=== PATIENT | male | born 1970 | race Caucasian/White ===

== ENCOUNTER 2017-10-15 18:10 | Inpatient (IN) | payer OTHER ==
[~2017-10-15] VITALS: Ht 185.4 cm; Wt 154.2 kg
[2017-10-15 18:11] VITALS: BP 209/119
[2017-10-15] MEDS ORDERED: LISINOPRIL10 MG PO (18:20)
[2017-10-15] MEDS ORDERED: ASPIR 8181 MG PO (18:20)
[2017-10-15 18:34] LABS: ABSOLUTE EOSINOPHILS 0.1 thou/uL (0.0-0.7); ABSOLUTE LYMPHOCYTES 0.6 thou/uL (0.8-5.3); ABSOLUTE MONOCYTES 0.8 thou/uL (0.0-1.2); ABSOLUTE NEUTROPHILS 4.5 thou/uL (1.6-8.1); BASOPHILS 0.7 %; HEMATOCRIT 43.4 % (42.0-52.0); HEMOGLOBIN 14.8 gm/dL (14.0-18.0); LYMPHOCYTES 10.6 %; MCH 28.5 pg (26.0-34.0); MCHC 34.2 g/dL (28.0-37.0); MCV 83.4 fL (80.0-100.0); MONOCYTES 13.2 %; MPV 8.1 fl. (7.2-11.1); NUCLEATED RBCS 0 /100WBC; PLATELET COUNT* 187 thou/uL (150-400); POLYS 74.5 %; RDW-CV 14.7 % (10.5-14.5); WBC 6.1 thou/uL (4.0-11.0)
[2017-10-15 18:42] LABS: ANION GAP 11 mmol/L (7-16); BUN 11 mg/dL (7-18); CALCIUM 8.7 mg/dL (8.5-10.1); CHLORIDE 103 mmol/L (98-107); CO2 24 mmol/L (21-32); CREATININE 1.2 mg/dL (0.6-1.3); GLUCOSE 101 mg/dL (70-99); POTASSIUM 3.5 mmol/L (3.5-5.1); SODIUM 138 mmol/L (136-145)
[2017-10-15 18:49] LABS: ALKALINE PHOSPHATASE 123 U/L (46-116); LIPASE 89 U/L (73-393); SGOT 25 U/L (15-37); SGPT 37 U/L (30-65); TOTAL BILIRUBIN 0.5 mg/dL (<0.1-1.0); TROPONIN-I LEVEL <0.06 ng/mL (<0.06)
[2017-10-15 18:59] LABS: INFLUENZA A ANTIGEN None Detected (None Detect); INFLUENZA B ANTIGEN None Detected (None Detect)
--- NOTE | 2017-10-15 19:01 | NUR ---
Ramírez WHITFIELD NOTIFIED OF PT LUNGS REMAINING WHEEZY. NEB TX ORDERED. O2 SATS RUNNING 90-91%
--- NOTE | 2017-10-15 19:09 | NUR ---
RT AT BEDSIDE TO GIVE NEB TX
[2017-10-15 21:22] LABS: URINE BILIRUBIN NEGATIVE (Negative); URINE BLOOD TRACE (Negative); URINE CLARITY CLEAR; URINE COLOR YELLOW; URINE GLUCOSE-RANDOM NEGATIVE (Negative); URINE KETONES NEGATIVE (Negative); URINE LEUKOCYTES NEGATIVE (Negative); URINE NITRITE NEGATIVE (Negative); URINE PROTEIN NEGATIVE (Negative); URINE SPECIFIC GRAVITY <= 1.005 (1.005-1.030); URINE UROBILINOGEN 0.2 E.U./dl (0.2-1.0)
[2017-10-15 21:41] VITALS: BP 151/84
[2017-10-15 21:46] LABS: AMP/METHAMP Negative (Negative); BARBITURATES Negative (Negative); BENZODIAZEPINES Negative (Negative); COCAINE Negative (Negative); METHADONE Negative (Negative); OPIATES Negative (Negative); PCP Negative (Negative); THC Negative (Negative)
[2017-10-15 22:00] VITALS: BP 146/93
[2017-10-16 04:35] VITALS: BP 144/79
--- NOTE | 2017-10-16 06:05 | NUR ---
PATIENT ARRIVED ON FLOOR FROM ER ABOUT 2200. PATIENT ADMISSION HISTORY AND ASSESSMENT WAS COMPLETED CHARTED. PATIENT WAS GIVEN PAIN MEDICINE NEEDED FOR GENERALIZED BODY ACHES WITH SOME RELIEF. WILL CONTINUE TO MONITOR.
[2017-10-16 08:00] VITALS: BP 193/119
[2017-10-16 11:47] VITALS: BP 181/94
--- NOTE | 2017-10-16 15:39 | NUR ---
INITIAL ASSESSMENT: Pt evaluated for d/c planning needs. Reviewed chart and spoke with nurse and pt. Pt is alert and oriented. Pt lives in house with spouse and was independent with ADL's prior to admission. 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 He said he informed his employer that he is hospitalized. Pt has CPAP, and uses no other DME. Pt has not had home health in the past. 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 Referral made to [employer]. No other needs identified.
--- NOTE | 2017-10-16 16:30 | EKG ---
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 : 1970 Requested By: Charley Willett Order Number: [id number] MD: Raul Kruse Measurements Intervals [place] Rate: 114 P: 29 GA: 156 QRS: -3 QRSD: 108 T: 70 QT: 355 QTc: 489 Interpretive Statements Sinus tachycardia Minimal ST depression, lateral leads Borderline prolonged QT interval No previous ECG available for comparison Electronically Signed On 10-16-2017 16:29:54 COOK COLD MEAT by Raul Kruse [email or web address] <ELECTRONICALLY SIGNED> By: Raul Kruse MD, [facility] 10/16/17 1629 D: [id number] Raul Kruse MD, FACC /EPI
[2017-10-16 16:56] VITALS: BP 219/110
--- NOTE | 2017-10-16 17:47 | NUR ---
AM ASSESSMENT AND VITAL SIGNS COMPLETED DOCUMENTED. PT HAS RESTED INTERMITTENTLY. IV FLUID CONTINUES ALONG WITH SYMPTOM MANAGEMENT. BLOOD PRESSURE HAS BEEN ELEVATED, PRN HYDRALAZINE GIVEN TWICE WITH SOME IMPROVEMENT. PT'S APPETITE AND ORAL FLUID INTAKE HAVE NOT BEEN AFFECTED. PT STATES HE HASN'T HAD A BOWEL MOVEMENT IN TWO DAYS, PRUNE JUICE GIVEN PER HIS REQUEST. HOURLY ROUNDING AND FALL PRECAUTIONS IN PLACE.
[2017-10-16 20:10] VITALS: BP 194/103
[2017-10-17] VITALS (7 sets, daily range): BP systolic 149–195; BP diastolic 70–105
[2017-10-17 04:19] LABS: HEMATOCRIT 44.1 % (42.0-52.0); HEMOGLOBIN 14.3 gm/dL (14.0-18.0); MCH 27.3 pg (26.0-34.0); MCHC 32.5 g/dL (28.0-37.0); MCV 84.2 fL (80.0-100.0); NUCLEATED RBCS 0 /100WBC; PLATELET COUNT* 220 thou/uL (150-400); RBC 5.23 mil/uL (4.50-6.00); RDW-CV 14.8 % (10.5-14.5); WBC 13.5 thou/uL (4.0-11.0)
[2017-10-17 04:42] LABS: CALCIUM 8.7 mg/dL (8.5-10.1); CREATININE 1.2 mg/dL (0.6-1.3); POTASSIUM 4.2 mmol/L (3.5-5.1)
[2017-10-17 05:47] LABS: ABSOLUTE LYMPHOCYTES 0.8 thou/uL (0.8-5.3); ABSOLUTE MONOCYTES 0.3 thou/uL (0.0-1.2); ABSOLUTE NEUTROPHILS 12.4 thou/uL (1.6-8.1); PLATELET ESTIMATE ADEQUATE
[2017-10-17 05:48] LABS: ANISOCYTOSIS 1+; POIKILOCYTOSIS 1+
--- NOTE | 2017-10-17 07:38 | NUR ---
PT SLEPT ON AND OFF OVERNIGHT, SLEPT FOR A FEW HOURS AFTER RECEIVING PO PAIN AND ANXIETY MED AT HS. BP ELEVATED THIS SHIFT, SCHEDULED PO MEDS AND PRN IV HYDRALAZINE GIVEN INDICATED AND BP IMPROVED THIS MORNING. TO HAVE CARDIAC ECHO TODAY. TELE . CO GENERALIZED ACHES AND PAINS, NO FEVER OVERNIGHT. UP INDEP TO BR TO VOID AND BM OVERNIGHT, SOME LIMA. TOLERATING REGULAR DIET WITHOUT N/V. NICOTINE PATCH REMOVED AT HS. CXR TODAY. AM LABS DRAWN. UP INDEP TO SHOWER THIS MORNING, IV PULLED OUT. RFA IV RESTARTED AND IVF INFUSING PER PUMP. OCC PROD COUGH, JHA SALIVA/SPUTUM NOT SUITABLE FOR SPECIMEN COLLECTION. ABLE TO USE CALL LITE AND MAKE NEEDS KNOWN.
--- NOTE | 2017-10-17 16:22 | NUR ---
PATIENT GIVEN PRN VICODIN X 2 THIS SHIFT FOR BACK PAIN. PATIENT REQUESTED HEATING PAD FOR BACK, ORDER PLACED. IV SL THIS SHIFT, SCHED ABX GIVEN. ECHO DONE THIS AM, AWAITING RESULTS. CXR THIS AM, DR. ALMEIDA AWARE OF RESULTS. CARDAIC MONITOR REMAINS IN PLACE, SR/ST THIS SHIFT. PATIENT UP AD MARISOL AROUND ROOM AND IN HALLWAY. HYDRALAZINE GIVEN X 1 THIS SHIFT FOR ELEVATED BP. PATIENT HOPING TO GO HOME SOON.
--- NOTE | 2017-10-17 17:04 | 2DMMODE ---
[place] [address] 2 D/M-MODE ECHOCARDIOGRAM Name: ROHIT FONTENOT Room: [address] ADM IN [facility]#: [id number] Admission: 10/15/17 Attend Phys: Warren Carrera Discharge: Date of : 66 Date of Service: 10/17/17 1704 Report #: [id number] THIS REPORT FOR: //name// APPROVED REPORT Study performed: 10/17/2017 11:30:54 EXAM: Comprehensive 2D, Doppler, and color-flow Echocardiogram Patient Location: In-Patient Room #: [facility] BSA: 2.67 HR: 89 bpm BP: 152/70 mmHg Other Information Study Quality: Good Indications Congestive Heart Failure 2D Dimensions LVEF(%): 70.82 (>50%) IVSd: 17.70 (7-11mm) LVOT Diam: 22.08 (18-24mm) LVDd: 50.61 mm PWd: 15.04 (7-11mm) Ascending Ao: 32.43 (22-36mm) LVDs: 30.17 (25-40mm) Aortic Root: 31.46 mm Chiu's LVEF: 70.82 % Volumes Left Atrial Volume (Systole) LA ESV Index: 31.90 mL/m2 Aortic Valve AoV Peak Chavez.: 1.63 m/s AO Peak Gr.: 10.57 mmHg LVOT Max P.49 mmHg AO Mean Gr.: 6.07 mmHg LVOT Mean P.32 mmHg LVOT Max V: 1.27 m/s AO V2 VTI: 28.77 cm LVOT Mean V: 0.85 m/s ALVARO (VTI): 3.29 cm2 LVOT V1 VTI: 24.68 cm Mitral Valve E/A Ratio: 0.84 MV Decel. Time: 227.91 [place] [address] 2 D/M-MODE ECHOCARDIOGRAM Name: ROHIT FONTENOT Room: [address] IN .R.#: [id number] Admission: 10/15/17 Attend Phys: Warren Carrera Discharge: Date of : 66 Date of Service: 10/17/17 1704 Report #: [id number] E Max Chavez.: 0.77 m/s MV PHT: 66.09 ms MVA (PHT): 3.33 cm2 TDI E/Lateral E': 7.70 E/Medial E': 9.63 Medial E' Chavez.: 0.08 m/s Lateral E' Chavez.: 0.10 m/s Pulmonary Valve PV Peak Chavez.: 1.00 m/s PV Peak Gr.: 3.97 mmHg Left Ventricle The left ventricle is normal size. There is normal LV segmental wall motion. Moderate concentric left ventricular hypertrophy. Left ventricular systolic function is normal. The left ventricular ejection fraction is within the normal range. LVEF is 55%. Grade I - abnormal relaxation pattern. Right Ventricle The right ventricle is normal size. The right ventricular systolic function is normal. Atria The left atrium size is normal. The right atrium size is normal. Aortic Valve The aortic valve is normal in structure. No aortic regurgitation is present. There is no aortic valvular stenosis. Mitral Valve The mitral valve is normal in structure. Mild mitral regurgitation. No evidence of mitral valve stenosis. Tricuspid Valve The tricuspid valve is normal in structure. There is no tricuspid valve regurgitation noted. Pulmonic Valve The pulmonary valve is normal in structure. There is no pulmonic valvular regurgitation. Great Vessels The aortic root is normal in size. IVC is normal in size and collapses with >50% [place] [address] 2 D/M-MODE ECHOCARDIOGRAM Name: ROHIT FONTENOT Room: [address] IN [facility]#: [id number] Admission: 10/15/17 Attend Phys: Warren Carrera Discharge: Date of : 66 Date of Service: 10/17/17 1704 Report #: [id number] Pericardium There is no pericardial effusion. <Conclusion> The left ventricle is normal size. Moderate concentric left ventricular hypertrophy. Left ventricular systolic function is normal. The left ventricular ejection fraction is within the normal range. LVEF is 55%. Grade I - abnormal relaxation pattern. The right ventricle is normal size. The left atrium size is normal. The aortic valve is normal in structure. The mitral valve is normal in structure. Mild mitral regurgitation. The tricuspid valve is normal in structure. IVC is normal in size and collapses with >50% inspiration There is no pericardial effusion. There is normal LV segmental wall motion. <ELECTRONICALLY SIGNED> By: Raul Kruse MD, FACC 10/17/17 1704 170 1704 Raul Kruse MD, FACC /INF
[2017-10-18] VITALS: BP 149/79
[2017-10-18 04:00] VITALS: BP 138/82
--- NOTE | 2017-10-18 04:54 | NUR ---
PT SLEPT AT INTERVALS DURING THE NIGHT, IV SALINE LOCKED, SNACKS AT HS, UP AD MARISOL, PRN PAIN MEDICATIONS AT HS, CALL LIGHT IN REACH, WILL CONTINUE TO MONITOR
[2017-10-18 07:55] VITALS: BP 156/98
--- NOTE | 2017-10-18 11:32 | NUR ---
Nutrition: Pt assessed for high BMI. Wt: 340#. Regular diet, eating well. Admitted with pneumonia. RX, labs noted. Pt appears at low nutrition risk at this time.
[2017-10-18 14:39] VITALS: BP 156/98
[2017-10-18] MEDS ORDERED: OMEPRAZOLE40 MG PO (14:43)
[2017-10-18] MEDS ORDERED: PREDNISONE 10 M10 MG PO (14:46)
[2017-10-18] MEDS ORDERED: KEFLEX500 M2 PO (14:47)
--- NOTE | 2017-10-18 17:13 | NUR ---
PATIENT UP AND AMBULATING INDPENDENTLY. IV DC'D THIS SHIFT AFTER SCHED ABX GIVEN. PATIENT SCRIPTS CALLED INTO [facility] IN [place]. CAB CALLED FOR PATIENT. PATIENT VERBALIZES UNDERSTANDING OF ALL DISCHARGE PAPERS. ALL BELONGINGS SENT WITH PATIENT.
== END 2017-10-18 16:40 | disposition home or self-care (01) | DRG 202 ==
LOC: M.ERS 18:10 → M.TBA-ER 20:06 → M.3W 20:06
PROVIDERS: Internal Medicine; Physician Assistant; ADMIT Internal Medicine
DX: J20.8 Acute bronchitis due to other specified organisms (principal); J18.9 Pneumonia, unspecified organism; I10 Essential (primary) hypertension; F17.210 Nicotine dependence, cigarettes, uncomplicated; E86.0 Dehydration; M79.1 Myalgia; Z79.82 Long term (current) use of aspirin; Z79.899 Other long term (current) drug therapy; Z71.6 Tobacco abuse counseling; Z28.21 Immunization not carried out because of patient refusal